=== PATIENT | female | born 1965 | race Caucasian/White ===

== ENCOUNTER 2017-02-06 05:22 | Inpatient (IN) | payer OTHER ==
[2017-02-06 06:34] VITALS: BMI 29.2
[2017-02-06] MEDS ORDERED: SODIUM CHLORIDE 1,000 ML IV STA (07:38)
--- NOTE | 2017-02-06 07:49 | PDOC ---
History of Present Illness - General History Source: Patient Exam Limitations: No Limitations - History of Present Illness Initial Comments: CHIEF COMPLAINT: 51 y/o afebrile female with PMH uterine fibroids c/o heavy vaginal bleeding. HISTORY OF PRESENT ILLNESS: The patient states she was getting her menstrual cycle monthly until this past october. She got her period in october but then didn't have it again until 6 days ago. She states she bled normally for 3 days but then for the past 3 days she has been bleeding very heavily with passage of large clots. She states today she is changing her maxi pad every 30 minutes. She states since last night she has felt slightly dizzy. She is also c/o lower abdominal and back cramping. She denies LOC, head trauma, f/c, n/v/d, CP, SOB, dysuria. She has an appointment with her PHYSICAL THERAPY SUPERVISOR in 5 days, on 02/11/17. Vital signs on arrival are notable for pulse of 113. PHYSICAL THERAPY SUPERVISOR is Dr. Sotelo REVIEW OF SYSTEMS: GENERAL/CONSTITUTIONAL: No fever/chills. No weakness. No weight change. HEAD, EYES, EARS, NOSE AND THROAT: No change in vision. No ear pain or discharge. No sore throat. CARDIOVASCULAR: No chest pain or shortness of breath. RESPIRATORY: No cough, wheezing, or hemoptysis. GASTROINTESTINAL: +heavy vaginal bleeding. No nausea, vomiting, diarrhea. GENITOURINARY: No dysuria, frequency, or change in urination. MUSCULOSKELETAL: No joint or muscle swelling or pain. No neck or back pain. SKIN: No rash or easy bruising. NEUROLOGIC: +dizziness. No headache, loss of consciousness, or loss of sensation. PHYSICAL EXAM: GENERAL: The patient is awake, alert, and fully oriented, in no acute distress. She is well appearing and ambulatory. HEAD: Normal with no signs of trauma. ENT: Pupils equal, round and reactive to light, extraocular movements intact, sclera anicteric, conjunctiva clear. Neck supple. LUNGS: Clear to auscultation bilaterally. Normal excursion. No respiratory distress or use of accessory muscles. CV: Rapid rate/regular rhythm, S1/S2, no MRG. Cap refill < 2 sec. ABDOMEN: Soft, non-distended, obese, minimal TTP of lower pelvic region. VAGINAL: REFUSED EXTREMITIES: Normal range of motion, no edema. NEUROLOGICAL: Normal speech, normal gait. CN II-XII grossly intact. PSYCH: Normal mood, normal affect. SKIN: Warm, dry, normal turgor, no rashes or lesions noted. <Alma Myers - Last Filed: 02/06/17 10:06> <Juan Ramon Perez - Last Filed: 02/12/17 18:35> - General Chief Complaint: Vaginal Bleeding Stated Complaint: VAGINAL BLEEDING Time Seen by Provider: 02/06/17 07:27 Past History - Surgical History Cholecystectomy: Yes - Reproductive History Para: 2 - Immunization History Immunization Up to Date: No - Psycho/Social/Smoking Cessation Hx Anxiety: No Suicidal Ideation: No Smoking History: Never smoked Have you smoked in the past 12 months: No Number of Cigarettes Smoked Daily: 0 Information on smoking cessation initiated: No Hx Alcohol Use: No Drug/Substance Use Hx: No Substance Use Type: None <Alma Myers - Last Filed: 02/06/17 10:06> <Juan Ramon Perez - Last Filed: 02/12/17 18:35> - Past Medical History Allergies/Adverse Reactions: Allergies Allergy/AdvReac Type Severity Reaction Status Date / Time Tetracyclines Allergy Intermediate Difficulty Verified 02/06/17 07:00 Breathing Home Medications: Ambulatory Orders Ibuprofen [Motrin -] 600 mg PO QID PRN #28 tablet 02/07/17 *Physical Exam - Vital Signs Last Vital Signs Temp Pulse Resp BP Pulse Ox 98.0 F 113 H 14 140/88 100 02/06/17 06:32 02/06/17 06:32 02/06/17 06:32 02/06/17 06:32 02/06/17 07:00 <Alma Myers - Last Filed: 02/06/17 10:06> - Vital Signs Last Vital Signs Temp Pulse Resp BP Pulse Ox 98.0 F 113 H 14 140/88 98 02/06/17 06:32 02/06/17 06:32 02/06/17 06:32 02/06/17 06:32 02/06/17 08:06 <Juan Ramon Perez - Last Filed: 02/12/17 18:35> Heart Score/ECG Review - ECG Impressions Comment:: 02/06/17 09:32 Twelve-lead EKG was performed and reviewed by me. There is normal sinus rhythm with a normal rate. rate of 60 The axis is normal. The intervals are normal. There is normal R wave progression There are no ST or T wave abnormalities. Impression: Normal twelve-lead EKG <Juan Ramon Perez - Last Filed: 02/12/17 18:35> ED Treatment Course - LABORATORY CBC & Chemistry Diagram: 02/06/17 08:06 02/06/17 08:06 <Alma Myers - Last Filed: 02/06/17 10:06> - LABORATORY CBC & Chemistry Diagram: 02/07/17 07:30 02/07/17 07:30 - ADDITIONAL ORDERS Additional order review: Laboratory Results 02/06/17 02/06/17 02/06/17 08:06 08:06 08:06 Sodium 140 Potassium 4.2 Chloride 107 Carbon Dioxide 26 Anion Gap 7 L BUN 12 Creatinine 0.6 Creat Clearance w eGFR > 60 Random Glucose 87 Calcium 8.6 Total Bilirubin 0.4 AST 22 ALT 31 Alkaline Phosphatase 102 Total Protein 7.0 Albumin 3.3 L Urine Color Red Urine Appearance Cloudy Urine pH 6.0 Ur Specific [place] 1.018 Urine Protein 2+ H Urine Glucose (UA) Negative Urine Ketones Negative Urine Blood 3+ H Urine Nitrite Negative Urine Bilirubin Negative Urine Urobilinogen Negative Ur Leukocyte Esterase Negative Urine RBC 6201 Urine WBC 10 Urine Mucus Rare Blood Type O POSITIVE Antibody Screen Negative 02/06/17 08:06 RBC 4.32 MCV 71.0 L MCHC 31.1 L RDW 20.2 H MPV 8.9 Neutrophils % 59.8 Lymphocytes % 29.3 Monocytes % 7.7 Eosinophils % 2.0 Basophils % 1.2 - RADIOLOGY Radiology Studies Ordered: Category Date Time Status PELVIC / BLADDER US [US] Routine Ultrasound 02/06/17 Taken - Medications Given in the ED: ED Medications Discontinued Medications Generic Name Dose Route Start Last Admin Trade Name Freq PRN Reason Stop Dose Admin Sodium Chloride 1,000 mls @ 1,000 mls/hr 02/06/17 07:38 02/06/17 08:04 Normal Saline - IV 02/06/17 08:37 1,000 mls/hr ASDIR STA Administration <Juan Ramon Perez - Last Filed: 02/12/17 18:35> Medical Decision Making - Medical Decision Making A/P: 51 y/o female with heavy vaginal bleeding for the past 3 days, changing her maxi pad every 45 minutes, with dizziness and tachycardia. Plan is as follows: 1. Labs 2. EKG 3. Transvaginal Ultrasound 4. IV fluids The patient is refusing pain medication at this time. Ultrasound IMPRESSION: Prominent fibroid uterus. Prominent endometrial stripe for a patient in proliferative phase of the menstrual cycle. The patient's PCP, Dr. Phillips, is in the ER and would like the patient admitted to her service as the patient has a extensive family history of PHYSICAL THERAPY SUPERVISOR malignancies. Dr. Phillips would like the patient to have a D&C. Dr. Phillips spoke with Dr. Gonzalez, who agrees to perform a D&C. The patient is made aware of the plan. <Alma Myers - Last Filed: 02/06/17 10:06> - Medical Decision Making The patient was seen and evaluated in conjunction with KASSIDY Myers under my direct supervision, ancillary studies were reviewed. I independently interviewed and evaluated the patient and I agree with the plan as outlined by KASSIDY Myers . <Juan Ramon Perez - Last Filed: 02/12/17 18:35> *DC/Admit/Observation/Transfer - Discharge Dispostion Admit: Yes <Alma Myers - Last Filed: 02/06/17 10:06> <JuanR amon Perez - Last Filed: 02/12/17 18:35> Diagnosis at time of Disposition: Menorrhagia Qualifiers: Menorrahagia type: with irregular cycle Qualified Code(s): N92.1 - Excessive and frequent menstruation with irregular cycle Fibroid (bleeding) (uterine) Qualifiers: Uterine leiomyoma location: unspecified location Qualified Code(s): D25.9 - Leiomyoma of uterus, unspecified - Discharge Dispostion Disposition: HOME Condition at time of disposition: Good - Prescriptions - Referrals
[2017-02-06 08:29] LABS: BASOPHIL 1.2 % (0-2.0); MCH 22.1 pg (25.7-33.7); MCHC 31.1 g/dl (32.0-36.0); MEAN PLT VOLUME 8.9 fl (7.5-11.1); NEUTROPHILS 59.8 % (42.8-82.8); PLATELET COUNT 220 K/MM3 (134-434); RDW 20.2 % (11.6-15.6); URINE APPEARANCE CLOUDY; URINE BILIRUBIN NEGATIVE (NEGATIVE); URINE COLOR RED; URINE GLUCOSE (UA) NEGATIVE (NEGATIVE); URINE KETONE NEGATIVE (NEGATIVE); URINE LEUK ESTERASE NEGATIVE (NEGATIVE); URINE NITRITE NEGATIVE (NEGATIVE); URINE UROBILINOGEN NEGATIVE E.U./dl (0.2-1.0); WHITE BLOOD COUNT 5.3 K/mm3 (4.0-10.0)
[2017-02-06 08:37] LABS: URINE BLOOD 3+ (NEGATIVE); URINE PROTEIN 2+ (NEGATIVE)
[2017-02-06 08:39] LABS: URINE MUCUS RARE; URINE RBC 6201 /hpf (0-3); URINE WBC 10 /hpf (3-5)
[2017-02-06 08:54] LABS: ALBUMIN 3.3 g/dl (3.4-5.0); ALK PHOS 102 U/L (45-117); ANION GAP 7 (8-16); BILIRUBIN,TOTAL 0.4 mg/dL (0.2-1.0); CALCIUM 8.6 mg/dL (8.5-10.1); CO2 26 mmol/L (21-32); CREATININE 0.6 mg/dL (0.55-1.02); GLUCOSE,RANDOM 87 mg/dL (74-106); SGOT/AST 22 U/L (15-37); SGPT/ALT 31 U/L (12-78)
--- NOTE | 2017-02-06 14:15 | EKG ---
Test Reason : Blood Pressure : / mmHG Vent. Rate : 060 BPM Atrial Rate : 060 BPM P-R Int : 166 ms QRS Dur : 078 ms QT Int : 400 ms P-R-T Axes : 028 045 023 degrees QTc Int : 400 ms NORMAL SINUS RHYTHM NORMAL ECG NO PREVIOUS ECGS AVAILABLE Confirmed by KRIS MAURICIO MD ([id number]) on 02/06/2017 2:15:21 PM Referred By: Confirmed By:KRIS MAURICIO MD
--- NOTE | 2017-02-06 17:00 | CON.OBG ---
Consult Consult Specialty:: PARCEL WRAPPER Referred by:: Dr. De Los Santos Reason for Consultation:: Abnormal uterine bleeding, fibroids - History of Present Illness Chief Complaint: Heavy vaginal bleeding History of Present Illness: 51 y/o P2 female with LMP 02/01/17 presented to the ER complaining of heavy vaginal bleeding, light headedness/dizzines and some pelvic pain/cramping. Patient had normal menstrual cycles until October when she had amenorrhea, and she then started bleeding 6 days ago. The patient has a history of fibroids. OBGYN is Dr. Shawn Joy. Current Hgb is 9.6. - History Source History Provided By: Patient, Medical Record Limitations to Obtaining History: No Limitations - Past Medical History Reproductive: Yes: Other (Para 2) ...LMP: 02/01/17 ...LMP Comment: was amenorrheic before this menses ...: No ...Para: 2 Heme/Onc: Yes: Anemia Psych: No: Anxiety, Bipolar, Depression - Past Surgical History Past Surgical History: Yes: Cholecystectomy - Alcohol/Substance Use Hx Alcohol Use: No - Smoking History Smoking history: Never smoked Have you smoked in the past 12 months: No Aproximately how many cigarettes per day: 0 Home Medications - Allergies Allergies/Adverse Reactions: Allergies Allergy/AdvReac Type Severity Reaction Status Date / Time Tetracyclines Allergy Intermediate Difficulty Verified 02/06/17 07:00 Breathing - Home Medications Home Medications: Ambulatory Orders NK [No Known Home Medication] 02/06/17 Family Disease History - Family Disease History Other Family History: sister with breast cancer, mother with breast cancer, cousin with uterine cancer, separate cousin with ovarian cancer Physical Exam-MARKETING COMMUNICATIONS MANAGER Vital Signs: Vital Signs Temperature 98.0 F 02/06/17 06:32 Pulse Rate 65 02/06/17 10:21 Respiratory Rate 18 02/06/17 10:21 Blood Pressure 136/80 02/06/17 10:21 O2 Sat by Pulse Oximetry (%) 98 02/06/17 10:21 Constitutional: Yes: Well Nourished, No Distress, Calm Eyes: Yes: Conjunctiva Clear, EOM Intact HENT: Yes: Atraumatic, Normocephalic Neck: Yes: Supple, Trachea Midline Cardiovascular: Yes: Regular Rate and Rhythm Respiratory: Yes: Regular, CTA Bilaterally Gastrointestinal: Yes: Normal Bowel Sounds, Soft Internal Exam Deferred: Yes Vaginal Exam: Yes: Bleeding Edema: No Neurological: Yes: Alert, Oriented Psychiatric: Yes: Alert, Oriented Problem List - Problems (1) Menorrhagia Code(s): N92.0 - EXCESSIVE AND FREQUENT MENSTRUATION WITH REGULAR CYCLE Qualifiers: Menorrahagia type: with irregular cycle Qualified Code(s): N92.1 - Excessive and frequent menstruation with irregular cycle (2) Fibroid (bleeding) (uterine) Code(s): D25.9 - LEIOMYOMA OF UTERUS, UNSPECIFIED Qualifiers: Uterine leiomyoma location: unspecified location Qualified Code(s): D25.9 - Leiomyoma of uterus, unspecified Assessment/Plan 51 y/o P2 female with heavy vaginal bleeding/AUB and fibroids Hgb currently 9.6 - to repeat in a.m. TV ultrasound shows thick lining and and fibroid plan for D&C tomorrow - NPO after midnight
--- NOTE | 2017-02-06 23:39 | HP ---
Admitting History and Physical - Admission Chief Complaint: vaginal bleeding for 5 days. c/o dizzines and lightheadedness. worse with orthostatic changes History of Present Illness: 51 y/o afebrile female with PMH uterine fibroids c/o heavy vaginal bleeding. HISTORY OF PRESENT ILLNESS: The patient states she was getting her menstrual cycle monthly until this past october. She got her period in october but then didn't have it again until 6 days ago. She states she bled normally for 3 days but then for the past 3 days she has been bleeding very heavily with passage of large clots. She states today she is changing her maxi pad every 30 minutes. She states since last night she has felt slightly dizzy. C/o feeling like she will pass out when she get up fromlaying position, also c/o lower abdominal and back cramping. She denies LOC, head trauma, f/c, n/v/d, CP, SOB, dysuria. She has an appointment with her BREAD STACKER in 5 days, on 02/11/17. History Source: Patient, Family Member, Significant Other - Past Medical History Reproductive: Yes: Fibroids ...LMP: 02/01/17 ...LMP Comment: was amenorrheic before this menses ...: No ...Para: 2 Heme/Onc: Yes: Anemia Psych: No: Anxiety, Bipolar, Depression - Past Surgical History Past Surgical History: Yes: Cholecystectomy - Smoking History Smoking history: Never smoked Have you smoked in the past 12 months: No Aproximately how many cigarettes per day: 0 - Alcohol/Substance Use Hx Alcohol Use: No - Social History Usual Living Arrangement: Yes: With Spouse, With Child ADL: Independent History of Recent Travel: No Home Medications - Allergies Allergies/Adverse Reactions: Allergies Allergy/AdvReac Type Severity Reaction Status Date / Time Tetracyclines Allergy Intermediate Difficulty Verified 02/06/17 07:00 Breathing - Home Medications Home Medications: Ambulatory Orders NK [No Known Home Medication] 02/06/17 Family Disease History - Family Disease History Family Disease History: Other: Mother (Breast CA), Sister (Breast CA X2) Other Family History: sister with breast cancer, mother with breast cancer, cousin with uterine cancer, separate cousin with ovarian cancer Review of Systems - Review of Systems Constitutional: reports: No Symptoms Eyes: reports: No Symptoms HENT: reports: No Symptoms Cardiovascular: reports: No Symptoms Respiratory: reports: No Symptoms Gastrointestinal: reports: No Symptoms Genitourinary: reports: No Symptoms Breasts: reports: No Symptoms Reported Musculoskeletal: reports: Back Pain (lower back pain) Integumentary: reports: No Symptoms Neurological: reports: Dizziness, Other (lightheadedness) Endocrine: reports: No Symptoms Hematology/Lymphatic: reports: No Symptoms Psychiatric: reports: No Symptoms Physical Examination Vital Signs: Vital Signs Temperature 97.8 F 02/06/17 21:41 Pulse Rate 85 02/06/17 21:41 Respiratory Rate 18 02/06/17 21:41 Blood Pressure 106/60 02/06/17 21:41 O2 Sat by Pulse Oximetry (%) 98 02/06/17 13:00 Constitutional: Yes: Well Nourished, Calm, Obese Eyes: Yes: WNL, Conjunctiva Clear, EOM Intact HENT: Yes: WNL, Atraumatic, Normocephalic Neck: Yes: WNL, Supple, Trachea Midline Cardiovascular: Yes: WNL, Regular Rate and Rhythm, Tachycardia Respiratory: Yes: WNL, Regular, CTA Bilaterally Gastrointestinal: Yes: WNL, Normal Bowel Sounds, Soft, Abdomen, Obese Renal/: Yes: WNL Breast(s): Yes: WNL Musculoskeletal: Yes: Back Pain Extremities: Yes: WNL Edema: No Peripheral Pulses WNL: Yes Peripheral Pulses: Left Radial: 2+, Right Radial: 2+, Left Doralis Pedis: 2+, Right Dorsalis Pedis: 2+, Left Femoral: 2+, Right Femoral: 2+ Integumentary: Yes: WNL Neurological: Yes: WNL, Alert, Oriented ...Motor Strength: WNL Psychiatric: Yes: WNL, Alert, Oriented Problem List - Problems (1) Fibroid (bleeding) (uterine) Code(s): D25.9 - LEIOMYOMA OF UTERUS, UNSPECIFIED Qualifiers: Uterine leiomyoma location: unspecified location Qualified Code(s): D25.9 - Leiomyoma of uterus, unspecified (2) Menorrhagia Assessment/Plan: assesmet by FLATWORK FINISHER Hormone vs D&C tx Strong family hx of FLATWORK FINISHER mailgnancy need to exculed same in 51 y/o female case discussed with FLATWORK FINISHER this am possible D&C tonight NPO till further notice Code(s): N92.0 - EXCESSIVE AND FREQUENT MENSTRUATION WITH REGULAR CYCLE Qualifiers: Menorrahagia type: with irregular cycle Qualified Code(s): N92.1 - Excessive and frequent menstruation with irregular cycle (3) Back spasm Code(s): M62.830 - MUSCLE SPASM OF BACK (4) Obese Code(s): E66.9 - OBESITY, UNSPECIFIED
[2017-02-07 08:21] LABS: BASOPHIL 0.9 % (0-2.0); EOSINOPHIL 2.4 % (0-4.5); MCH 22.5 pg (25.7-33.7); MCHC 31.5 g/dl (32.0-36.0); MEAN CELL VOLUME 71.4 fl (80-96); MEAN PLT VOLUME 8.9 fl (7.5-11.1); NEUTROPHILS 61.2 % (42.8-82.8); PLATELET COUNT 209 K/MM3 (134-434); RDW 19.8 % (11.6-15.6); WHITE BLOOD COUNT 6.4 K/mm3 (4.0-10.0)
[2017-02-07 08:34] LABS: INR 1.13 (0.82-1.09); PROTHROMBIN TIME (PATIENT) 12.5 SEC (9.98-11.88)
[2017-02-07 08:40] LABS: CALCIUM 8.1 mg/dL (8.5-10.1); CREATININE 0.6 mg/dL (0.55-1.02); MAGNESIUM 1.7 mg/dL (1.8-2.4)
[2017-02-07] MEDS ORDERED: MIDAZOLAM HCL 2 MG/2 ML SINGLE DOSE VIAL ONE ×2 (11:56→13:39)
[2017-02-07] MEDS ORDERED: PROPOFOL 20 ML ONE ×3 (11:58→13:38)
[2017-02-07] MEDS ORDERED: LIDOCAINE HCL/PF 2% SDV 5ML VIAL ONE (11:59)
[2017-02-07] MEDS ORDERED: SUCCINYLCHOLINE CHLORIDE 200 MG/10 ML VIAL ONE (13:39)
[2017-02-07] MEDS ORDERED: DEXAMETHASONE SOD PHOSPHATE 4 MG/1 ML VIAL ONE (14:02)
[2017-02-07] MEDS ORDERED: KETOROLAC TROMETHAMINE 30 MG/1 ML VIAL ONE (14:02)
[2017-02-07] MEDS ORDERED: oxyCODONE HCL 5 MG TABLET PO PRN ×2 (14:17→14:51)
[2017-02-07] MEDS ORDERED: PROMETHAZINE HCL 25 MG/1 ML VIAL IVPUSH PRN ×2 (14:17→14:51)
[2017-02-07] MEDS ORDERED: ONDANSETRON 4 MG/2 ML VIAL IVPUSH PRN ×2 (14:17→14:51)
[2017-02-07] MEDS ORDERED: LACTATED RINGERS SOLUTION 1,000 ML IV SCH ×2 (14:30→14:51)
--- NOTE | 2017-02-07 14:30 | OP ---
Operative Note - Note: Operative Date: 02/07/17 Pre-Operative Diagnosis: Abnormal uterine bleeding Operation: Suction DC Post-Operative Diagnosis: Same as Pre-op Surgeon: Jazzy Gonzalez Estimated Blood Loss (mls): 20 Operative Report Dictated: Yes
--- NOTE | 2017-02-07 14:49 | OP ---
DATE OF OPERATION: 02/07/2017 PREOPERATIVE DIAGNOSIS: Abnormal uterine bleeding. OPERATION: Suction dilatation and curettage. POSTOPERATIVE DIAGNOSIS: Abnormal uterine bleeding. SURGEON: Jazzy Gonzalez MD ANESTHESIA: General. NURSE INCLUSION MANAGER: Alanna Artis CRNA PROCEDURE: Patient was taken to the operating room, placed in dorsal lithotomy position, prepped and draped in the usual sterile fashion. A time-out was performed in accordance with hospital regulations. A speculum was placed in the vagina, anterior lip of the cervix was grasped with a single-tooth tenaculum. No. 7 suction curette was then inserted. Suction curettage was then done. All contents was submitted to Pathology. All instruments were then removed. Patient tolerated the procedure well. Estimated blood loss was 20 mL. JAZZY GONZALEZ M.D. [id number]
[2017-02-07 15:38] VITALS: BP 94/56; PULSE 67; TEMP 98
== END 2017-02-07 18:30 | disposition home or self-care (01) | DRG 761 ==
LOC: JER 05:22 → JERBED 10:05 → UNDOADMIN 10:07 → JERBED 10:07 → J3W 13:05
PROVIDERS: ADMIT Family Medicine; ATTEND Family Medicine
PROC: 10D07Z8 Extraction of Products of Conception, Other, Via Natural or Artificial Opening (ICD-10-PCS; principal; 2017-02-06)
DX: D25.9 Leiomyoma of uterus, unspecified (principal); N93.8 Other specified abnormal uterine and vaginal bleeding; M62.830 Muscle spasm of back; E66.9 Obesity, unspecified; Z68.29 Body mass index [BMI] 29.0-29.9, adult
CPT/HCPCS: 36415; 76830-TC; 76856-TC; 80048; 80053; 81003; 81015; 83735; 84703; 85025; 85610; 86850; 86900; 86901; 88305-TC; 93005; 93010; 94760; 99284-25

== ENCOUNTER 2018-09-16 20:15 | Emergency (ER) | payer OTHER ==
[2018-09-16 20:29] VITALS: BP 137/80; PULSE 80; TEMP 98.1; BMI 39.0
--- NOTE | 2018-09-16 20:51 | PDOC ---
History of Present Illness - History of Present Illness Initial Comments: 09/16/18 21:26 Patient is a 52 year old female with no significant past medical history who presents to the ED with complaints of left calf pain that began x2 weeks ago. Patient left calf pain has gradually increasing in intensity over time, as well as increased left calf swelling. She reports taking a long flight from [place] x2 weeks ago, as well as taking a [address] home last week. Patient reports having a family history of blood clots, stating they advised her to come into the ED for evaluation of possible clot, after the symptoms did not subside. Patient reports going to see her PCP this evening for her symptoms who prescribed her with eliquis and advised she come into the ED for further evaluation. Denies chest pain, Sob. Denies nausea, vomiting. Denies fevers, chills. Denies trauma to affected area. Denies any other symptoms. Allergies: Tetracyclines. Social history: No smoking. No alcohol use. No illicit drugs. Surgical history: Cholecystectomy PMD: Dr. Phillips Adult ROS General: No fevers or chills, no weakness, no weight loss HEENT: No change in vision. No sore throat, No ear pain Cardiovascular: No chest pain or shortness of breath Respiratory:No cough, or wheezing. Gastrointestinal: No nausea, vomiting, diarrhea or constipation, No rectal bleeding Genitourinary: No dysuria, hematuria, or frequency Musculoskeletal: No joint or muscle pain or swelling Neurologic: No headache, vertigo, dizziness or loss of consciousness Psychiatric: No depression Skin: No rashes or easy bruising Endocrine: No increased thirst or abnormal weight change Allergic: No skin or latex allergy All other systems reviewed and normal Basic PE GENERAL: The patient is awake, alert, and fully oriented, in no acute distress. HEAD: Normal with no signs of trauma. EYES: Pupils equal, round and reactive to light, extraocular movements intact, sclera anicteric, conjunctiva clear. EXTREMITIES: +Tenderness to posterior proximal calf and posterior knee. Neurovascularly intact with no obvious swelling of leg or calf. Normal range of motion, no edema. NEUROLOGICAL: Normal speech, normal gait. PSYCH: Normal mood, normal affect. SKIN: Warm, Dry, normal turgor, no rashes or lesions noted. <Carlos Lyon - Last Filed: 09/16/18 21:26> - General History Source: Patient Exam Limitations: No Limitations - History of Present Illness Initial Comments: A portion of this note was documented by scribe services under my direction. I have reviewed the details of the note, within reason, and agree with the documentation with the following case summary and management plan written by me. Patient treated in the ED. Nursing notes are reviewed and incorporated into the medical decision-making. Vital signs reviewed. Assessment and plan: This is a 50-year-old female was sent in for a ultrasound Doppler to rule out DVT. Patient has a family history of DVT and has some pain and swelling to her left posterior calf. Patient's ultrasound was negative for DVT and patient was discharged home. <Francicso Kapoor I - Last Filed: 09/16/18 22:25> - General Chief Complaint: Pain Stated Complaint: LEFT CALF PAIN /KNEE Time Seen by Provider: 09/16/18 20:23 Past History <Carlos Lyon - Last Filed: 09/16/18 21:26> - Past Medical History Anemia: No (currently anemic) Asthma: No Cancer: No Cardiac Disorders: No CVA: No COPD: No CHF: No Dementia: No Diabetes: No GI Disorders: No Disorders: No HTN: No Hypercholesterolemia: No Liver Disease: No Seizures: No Thyroid Disease: No - Surgical History Abdominal Surgery: No Appendectomy: No Cardiac Surgery: No Cholecystectomy: Yes Lung Surgery: No Neurologic Surgery: No Orthopedic Surgery: No - Reproductive History Para: 2 - Immunization History Immunization Up to Date: No - Suicide/Smoking/Psychosocial Hx Smoking History: Never smoked Have you smoked in the past 12 months: No Number of Cigarettes Smoked Daily: 0 Information on smoking cessation initiated: No Hx Alcohol Use: Yes (SOCIAL) Drug/Substance Use Hx: No Substance Use Type: Alcohol Hx Substance Use Treatment: No <Francisco Kapoor I - Last Filed: 09/16/18 22:25> - Past Medical History Allergies/Adverse Reactions: Allergies Allergy/AdvReac Type Severity Reaction Status Date / Time Tetracyclines Allergy Intermediate Difficulty Verified 09/16/18 20:17 Breathing Home Medications: Ambulatory Orders Ibuprofen [Motrin -] 400 mg PO PRN 09/16/18 *Physical Exam - Vital Signs Last Vital Signs Temp Pulse Resp BP Pulse Ox 98.1 F 80 16 137/80 99 09/16/18 20:17 09/16/18 20:17 09/16/18 20:17 09/16/18 20:17 09/16/18 20:17 <Carlos Lyon - Last Filed: 09/16/18 21:26> - Vital Signs Last Vital Signs Temp Pulse Resp BP Pulse Ox 98.1 F 80 16 137/80 99 09/16/18 20:17 09/16/18 20:17 09/16/18 20:17 09/16/18 20:17 09/16/18 20:17 <Francisco Kapoor I - Last Filed: 09/16/18 22:25> *DC/Admit/Observation/Transfer - Attestations Scribe Attestion: 09/16/18 21:26 Documentation prepared by Carlos Lyon, acting as medical and health services manager for Francisco Kapoor MD. <Carlos Lyon - Last Filed: 09/16/18 21:26> - Discharge Dispostion Decision to Admit order: No <Francisco Kapoor I - Last Filed: 09/16/18 22:25> Diagnosis at time of Disposition: Pain of left calf - Discharge Dispostion Disposition: HOME Condition at time of disposition: Stable - Referrals Referrals: Magali Phillips MD [Primary Care Provider] - - Patient Instructions Additional Instructions: You can take Tylenol or Motrin as needed for pain. Your ultrasound was negative for blood clot or any abnormalities. Return to the emergency department immediately with ANY new, persistent or worsening symptoms. Continue any medications as previously prescribed by your physician. You should follow up with your primary doctor as soon as possible regarding today's emergency department visit. . Please make sure your doctor reviews the results of your emergency evaluation. Thank you for coming to the Emergency Department today for your care. It was a pleasure to see you today. Please note that your evaluation is INCOMPLETE until you follow-up with your doctor. - Post Discharge Activity
== END 2018-09-16 22:29 | disposition home or self-care (01) ==
LOC: FER 20:15
DX: M79.662 Pain in left lower leg (principal)
CPT/HCPCS: 93971-TC; 99282-25

== ENCOUNTER 2021-12-27 09:43 | Emergency (ER) | payer BC, OTHER ==
[2021-12-27 10:23] VITALS: BP 107/70; PULSE 67; TEMP 97.9; BMI 39.0
[2021-12-27] MEDS ORDERED: SODIUM CHLORIDE 0.9% 500 ML INFUS.BAG IV ONE (11:38)
[2021-12-27] MEDS ORDERED: MECLIZINE HCL 12.5 MG TABLET PO ONE (11:40)
[2021-12-27] MEDS ORDERED: MECLIZINE HCL 12.5 MG TABLET ONE (11:59)
[2021-12-27 12:49] LABS: BASO % 1.1 % (0-2.0); HEMATOCRIT 41.9 % (32.4-45.2); HEMOGLOBIN 14.4 GM/dL (10.7-15.3); LYMPH % 24.2 % (8-40); MCHC 34.3 g/dl (32.0-36.0); MEAN CELL VOLUME 90.4 fl (80-96); MEAN PLT VOLUME 9.2 fl (7.5-11.1); MONO % 7.6 % (3.8-10.2); NEUT % 64.1 % (42.8-82.8); PLATELET COUNT 229 10^3/uL (134-434); RBC 4.63 M/mm3 (3.60-5.2); RDW 13.2 % (11.6-15.6); WHITE BLOOD COUNT 6.6 K/mm3 (4.0-10.0)
[2021-12-27 13:09] LABS: ALBUMIN 3.6 g/dl (3.4-5.0); CALCIUM 9.1 mg/dL (8.5-10.1)
[2021-12-27 13:10] LABS: BLOOD UREA NITROGEN 11.6 mg/dL (7-18)
[2021-12-27 13:13] LABS: CREATININE 0.6 mg/dL (0.55-1.3)
[2021-12-27 13:14] LABS: BILIRUBIN,TOTAL 0.8 mg/dL (0.2-1); TOT PROT 7.4 g/dl (6.4-8.2)
[2021-12-27 14:33] LABS: EPI CELLS >36 /uL (0-25.1); HYALINE CASTS 2 /uL (0-3.1); PH,URINE 7.5 (5.0-8.0); URINE APPEARANCE CLEAR; URINE BACTERIA 965 /uL (0-1359); URINE BILIRUBIN NEGATIVE (NEGATIVE); URINE COLOR YELLOW; URINE GLUCOSE (UA) NEGATIVE (NEGATIVE); URINE KETONE NEGATIVE (NEGATIVE); URINE LEUK ESTERASE 2+ (NEGATIVE); URINE NITRITE NEGATIVE (NEGATIVE); URINE PROTEIN NEGATIVE (NEGATIVE); URINE RBC 25 /uL (0-23.9); URINE WBC 73 /uL (0-25.8)
== END 2021-12-27 16:14 | disposition home or self-care (01) ==
LOC: JER 09:43
DX: R42 Dizziness and giddiness (principal); M79.661 Pain in right lower leg
CPT/HCPCS: 36415; 70450-TC; 71046-TC-FY; 71275-TC; 80053; 81003; 84443; 84484; 85025; 85379; 93005; 93010; 93971-TC; 99285-25